=== PATIENT | female | born 1940 | race African-American/Black ===

== ENCOUNTER → 2016-11-08 | Outpatient (CLI) | payer MEDICARE ==
[2016-11-08 16:41] LABS: BASOPHILS % 0.7 % (0.0-2.0); EOSINOPHILS % 2.2 % (0.0-5.0); HEMATOCRIT. 36.7 % (36.0-48.0); HEMOGLOBIN. 12.4 g/dL (12.0-16.0); LYMPHOCYTES % 30.7 % (20.0-50.0); MEAN CORPUSCULAR HEMOGLOBIN 30.5 pg (28.0-32.0); MEAN CORPUSCULAR VOLUME 89.7 fL (81.0-99.0); MEAN PLATELET VOLUME 8.6 fl (7.4-10.4); MONOCYTES % 12.1 % (2.0-8.0); NEUTROPHILS % 54.3 % (40.0-76.0); PLATELET 175 x1000/uL (130-400); RED BLOOD CELL COUNT 4.09 mill/uL (4.2-5.4); RED CELL DISTRIBUTION WIDTH 13.3 % (11.6-14.6)
== END | disposition home or self-care (01) ==
LOC: LAB 16:15
PROVIDERS: ATTEND Internal Medicine
DX: D72.819 Decreased white blood cell count, unspecified (principal)
CPT/HCPCS: 36415; 85025

== ENCOUNTER 2017-09-19 16:21 | Emergency (ER) | payer MEDICARE ==
[~2017-09-19] VITALS: Ht 149.9 cm; Wt 59.0 kg
[2017-09-19] MEDS ORDERED: AMLODIPINE 2.5MG TABLET PO ONE (17:15)
[2017-09-19] MEDS ORDERED: CLONIDINE 0.1MG TABLET PO ONE (19:45)
[2017-09-19 20:45] VITALS: BP 170/86
== END 2017-09-19 20:45 | disposition home or self-care (01) ==
LOC: ER 16:21
DX: I10 Essential (primary) hypertension (principal); Z88.5 Allergy status to narcotic agent
CPT/HCPCS: 93005; 99283

== ENCOUNTER 2019-01-13 17:05 | Emergency (ER) | payer MEDICARE ==
[~2019-01-13] VITALS: Ht 152.4 cm; Wt 59.0 kg
[2019-01-13 17:20] VITALS: BP 188/62
== END 2019-01-13 20:39 | disposition left against medical advice (07) ==
LOC: ER 17:05
DX: Z53.21 Procedure and treatment not carried out due to patient leaving prior to being seen by health care provider (principal)

== ENCOUNTER 2024-11-26 23:28 | Emergency (ER) | payer MEDICARE ==
[~2024-11-26] VITALS: Ht 157.5 cm; Wt 60.0 kg
[2024-11-26 23:29] VITALS: O2SAT 100
[2024-11-26 23:45] VITALS: BP 176/80; PULSE 60; RESP 18; TEMP 36.7; O2SAT 99
[2024-11-27] MEDS ORDERED: DEXAMETHASONE 10 MG/ML VIAL IV ONE (01:30)
[2024-11-27] MEDS ORDERED: DIPHENHYDRAMINE 50MG/ML VIAL IV ONE (01:30)
[2024-11-27] MEDS ORDERED: FAMOTIDINE 20MG/2ML VIAL IV ONE (01:30)
== END 2024-11-27 02:57 | disposition left against medical advice (07) ==
LOC: ER 23:28
DX: R22.0 Localized swelling, mass and lump, head (principal); I10 Essential (primary) hypertension; Z79.52 Long term (current) use of systemic steroids; Z88.5 Allergy status to narcotic agent
CPT/HCPCS: 99282